=== PATIENT | female | born 1995 | race Caucasian/White ===

== ENCOUNTER 2019-07-03 13:54 | Outpatient (CLI) | payer BC ==
--- NOTE | 2019-07-03 14:42 | ULT ---
Exam: Pelvic ultrasound HISTORY: Lower abdominal pain. Swelling. COMPARISON: None TECHNIQUE: Multiple grayscale and color Doppler images were obtained in a transabdominal and transvag inal pelvic ultrasound. Spectral analysis of the Doppler waveforms of the ovaries were performed. FINDINGS: CERVIX: Grossly normal in appearance where visualized. UTERUS: Normal in size without focal abnormality. ENDOMETRIAL STRIPE: Difficult to adequately delineate but measures 17 mm which is thickened. No fluid or fluid collection is seen in the endometrial canal. Trace free fluid is present. This is probably physiologic in origin. RIGHT OVARY: Normal flow, without focal mass. LEFT OVARY:Hypoechoic lesion is present in the left ovary measuring 1.5 cm. Flow is present in the le ft ovary. IMPRESSION: 1. Thickened endometrium without fluid or fluid collection seen in the endometrial canal. 2. Hypoechoic lesion left ovary which could represent a hemorrhagic cyst. Follow-up pelvic ultrasound in 6-8 weeks is recommended for further evaluation. Reevaluation of the thickened endometrium can also be performed at that time.
== END 2019-07-03 13:55 | disposition home or self-care (01) ==
LOC: BICULT 13:54
PROVIDERS: ATTEND Family Medicine
DX: R10.30 Lower abdominal pain, unspecified (principal); R93.89 Abnormal findings on diagnostic imaging of other specified body structures; N83.8 Other noninflammatory disorders of ovary, fallopian tube and broad ligament
CPT/HCPCS: 76856